=== PATIENT | female | born 1990 | race Caucasian/White ===

== ENCOUNTER 2020-10-04 15:41 | Emergency (ER) | payer SELFPAY ==
[2020-10-04] MEDS ORDERED: Ibuprofen 200 MG TAB ONE (16:09)
== END 2020-10-04 17:05 | disposition home or self-care (01) ==
LOC: BURERS 15:41
DX: J02.9 Acute pharyngitis, unspecified (principal)
CPT/HCPCS: 87081; 87430; 87804; 99283

== ENCOUNTER 2021-08-02 08:56 | Emergency (ER) | payer SELFPAY ==
[2021-08-02] MEDS ORDERED: Ketorolac Tromethamine 30 MG/ML VIAL ONE (10:12)
[2021-08-02] MEDS ORDERED: Diazepam 5 MG TAB ONE (10:12)
== END 2021-08-02 10:54 | disposition home or self-care (01) ==
LOC: BURERS 08:56
DX: M43.6 Torticollis (principal)
CPT/HCPCS: 71045; 72040; 96372; J1885